=== PATIENT | female | born 1995 | race Caucasian/White ===

== ENCOUNTER 2017-04-22 21:04 | Inpatient (IN) | payer MEDICAID, OTHER ==
[2017-04-22] MEDS ORDERED: Misoprostol 25 MCG (1/4 of 100 MCG) Tab VAG PRN (21:51)
[2017-04-22] MEDS ORDERED: Terbutaline 1 MG/ML SDV SUBCUT PRN (21:51)
[2017-04-22] MEDS ORDERED: Sodium Chloride 0.9% 2.5 ML Syringe FLUSH PRN (21:52)
[2017-04-22] MEDS ORDERED: Carboprost Tromethamine 250 MCG/1 ML Amp IM PRN (21:52)
[2017-04-22] MEDS ORDERED: Lidocaine 1% 50 ML MDV INJECT PRN (21:52)
[2017-04-22] MEDS ORDERED: Methylergonovine 0.2 MG/1 ML Amp IM PRN (21:52)
[2017-04-22] MEDS ORDERED: Sodium Chloride 0.9% 10 ML Syringe FLUSH PRN (21:52)
[2017-04-22] MEDS ORDERED: Butorphanol 1 MG/ML SDV IVPUSH PRN (21:52)
[2017-04-22] MEDS ORDERED: Nalbuphine 10 MG/1 ML Vial IVPUSH PRN (21:52)
[2017-04-22] MEDS ORDERED: Water For Irrigation,Sterile 1,000 ML Container IRR PRN (21:52)
[2017-04-22] MEDS ORDERED: Misoprostol 200 MCG Tab PO PRN (21:52)
[2017-04-22] MEDS ORDERED: Ampicillin 2 GM in Sodium Chloride 0.9% 100 ML IV ONE (22:00)
[2017-04-22] MEDS ORDERED: Misoprostol 25 MCG (1/4 of 100 MCG) Tab VAG SCH (22:00)
[2017-04-22] MEDS ORDERED: Oxytocin/0.9 % Sodium Chloride 30 UNIT/500 ML BAG IV SCH ×2 (22:00)
[2017-04-22] MEDS: Lactated Ringers 1,000 ML IV SCH (22:08)
[2017-04-22] MEDS: Misoprostol 25 MCG (1/4 of 100 MCG) Tab PO SCH (22:31)
[2017-04-23] MEDS: Ampicillin 1 GM in Sodium Chloride 0.9% 50 ML IV SCH ×3 (02:18→10:25)
[2017-04-23] MEDS: Lactated Ringers 1,000 ML IV SCH ×3 (04:32→10:23)
--- NOTE | 2017-04-23 04:35 | PCM.LDHP ---
L&D History of Present Illness - General Date of Service: 04/23/17 Admit Problem/Dx: Patient Status Order with Admit Dx/Problem 04/22/17 21:52 Patient Status [ADT] Routine Admission Diagnosis/Problem Admission Diagnosis/Problem 04/23/17 04:32 21yo [facility] 05/18/2017 36 3/7wks come today due to SROM clear fluid, O-, RI , GBS unwknw. Source of Information: Patient History Limitations: Reports: No Limitations - History of Present Illness Introduction:: 21yo [facility] 05/18/2017 36 3/7wks come today due to SROM clear fluid, O-, RI , GBS unwknw. Improves with: Reports: None Worsens with: Reports: None Associated Symptoms: Reports: N - Related Data Allergies/Adverse Reactions: Allergies Allergy/AdvReac Type Severity Reaction Status Date / Time No Known Allergies Allergy Verified 04/04/15 21:38 Home Medications: Home Meds . 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 OBGYN: Reports: - Tobacco Use Smoking Status *Q: Never Smoker - Caffeine Use Caffeine Use: Reports: None - Recreational Drug Use Recreational Drug Use: No H&P Review of Systems - Review of Systems: Review Of Systems: See Below General: Reports: No Symptoms HEENT: Reports: No Symptoms Pulmonary: Reports: No Symptoms Cardiovascular: Reports: No Symptoms Gastrointestinal: Reports: No Symptoms Genitourinary: Reports: No Symptoms Musculoskeletal: Reports: No Symptoms Skin: Reports: No Symptoms Psychiatric: Reports: No Symptoms Neurological: Reports: No Symptoms Hematologic/Lymphatic: Reports: No Symptoms Immunologic: Reports: No Symptoms L&D Exam - Exam Exam: See Below - Vital Signs Weight: 79.095 kg - Exam General: Alert, Oriented, Cooperative HEENT: Hearing Intact Lungs: Normal Respiratory Effort GI/Abdominal Exam: Soft, Non-Tender Rectal Exam: Deferred Genitourinary: Cervical fluid Back Exam: Full Range of Motion Extremities: Normal Range of Motion, Non-Tender, No Pedal Edema, Normal Capillary Refill Skin: Warm, Dry, Intact Neurological: Reflexes Equal Bilateral, Normal Speech, Normal Tone Psychiatric: Alert, Normal Affect, Normal Mood - Patient Data Lab Results Last 24 hrs: Laboratory Results - last 24 hr 04/22/17 04/22/17 04/22/17 Range/Units 21:22 22:08 22:08 WBC 15.41 H (4.0-11.0) K/uL RBC 3.60 L (4.30-5.90) M/uL Hgb 9.8 L (12.0-16.0) g/dL Hct 29.9 L (36.0-46.0) % MCV 83.1 (80.0-98.0) fL MCH 27.2 (27.0-32.0) pg MCHC 32.8 (31.0-37.0) g/dL RDW Std Deviation 41.4 (28.0-62.0) fl RDW Coeff of Des 14 (11.0-15.0) % Plt Count 273 (150-400) K/uL MPV 10.10 (7.40-12.00) fL Nucleated RBC % 0.0 /100WBC Nucleated RBCs # 0 K/uL Membrane Rupture POSITIVE Blood Type O NEGATIVE Antibody Screen POSITIVE Antibody Identification Anti-D Result Diagrams: 04/22/17 22:08 - Problem List (1) Supervision of normal IUP (intrauterine ) in primigravida SNOMED Code(s): 40047358, 763946991, 841933161 ICD Code: Z34.00 - ENCNTR FOR SUPRVSN OF NORMAL FIRST , UNSP TRIMESTER Status: Acute Priority: High Current Visit: Yes Qualifiers: Trimester: third trimester Qualified Code(s): Z34.03 - Encounter for supervision of normal first , third trimester (2) SROM (spontaneous rupture of membranes) SNOMED Code(s): 268458058 ICD Code: INH6013 - Status: Acute Priority: High Current Visit: Yes Problem List Initiated/Reviewed/Updated: Yes Orders Last 24hrs: Active Orders 24 hr Category Date Time Status Patient Status [ADT] Routine ADT 04/22/17 21:52 Active Bedrest Bathroom Privileges [RC] ASDIRECTED Care 04/22/17 21:51 Active Communication Order [RC] ASDIRECTED Care 04/22/17 21:51 Active Communication Order [RC] ASDIRECTED Care 04/22/17 21:51 Active Communication Order [RC] ASDIRECTED Care 04/22/17 21:51 Active Heart Tones [RC] CONTINUOUS Care 04/22/17 21:52 Active Non Stress Test [RC] PER UNIT ROUTINE Care 04/22/17 21:52 Active May Shower [RC] ASDIRECTED Care 04/22/17 21:52 Active Notify Provider [RC] PRN Care 04/22/17 21:51 Active Notify Provider [RC] PRN Care 04/22/17 21:51 Active Notify Provider [RC] PRN Care 04/22/17 21:52 Active Notify Provider [RC] STAT Care 04/22/17 21:51 Active Oxygen Therapy [RC] ASDIRECTED Care 04/22/17 21:51 Active Up ad Bonnie [RC] ASDIRECTED Care 04/22/17 21:52 Active Vaginal Exam [RC] PRN Care 04/22/17 21:51 Active Vaginal Exam [RC] PRN Care 04/22/17 21:52 Active Vital Signs [RC] PER UNIT ROUTINE Care 04/22/17 21:51 Active Vital Signs [RC] PER UNIT ROUTINE Care 04/22/17 21:52 Active Clear Liquid Diet [DIET] Diet 04/23/17 Breakfast Active Ampicillin 1 gm Med 04/23/17 02:00 Active Sodium Chloride 0.9% [Normal Saline] 50 ml IV Q4H Butorphanol [Stadol] Med 04/22/17 21:52 Active 1 mg IVPUSH Q1H PRN Carboprost Tromethamine [Hemabate DS] Med 04/22/17 21:52 Active 250 mcg IM ASDIRECTED PRN Lactated Ringers [Ringers, Lactated] 1,000 ml Med 04/22/17 22:00 Active IV ASDIRECTED Lidocaine 1% [Xylocaine 1%] Med 04/22/17 21:52 Active 50 ml INJECT .ONCE PRN Methylergonovine [Methergine] Med 04/22/17 21:52 Active 0.2 mg IM ASDIRECTED PRN Misoprostol [Cytotec] Med 04/22/17 21:52 Active 200 mcg PO .ONCE PRN Misoprostol [Cytotec] Med 04/22/17 22:00 Active 25 mcg PO Q4H Misoprostol [Cytotec] Med 04/22/17 22:00 Active 25 mcg VAG .ONCE Misoprostol [Cytotec] Med 04/22/17 21:51 Active 25 mcg VAG Q4H PRN Nalbuphine [Nubain] Med 04/22/17 21:52 Active 10 mg IVPUSH Q1H PRN Oxytocin/0.9 % Sodium Chloride [Oxytocin 30 Unit/500 ML Med 04/22/17 22:00 Active -NS] 30 unit in 500 ml IV TITRATE Oxytocin/0.9 % Sodium Chloride [Oxytocin 30 Unit/500 ML Med 04/22/17 22:00 Active -NS] 30 unit in 500 ml IV TITRATE Sodium Chloride 0.9% [Saline Flush] Med 04/22/17 21:52 Active 10 ml FLUSH ASDIRECTED PRN Sodium Chloride 0.9% [Saline Flush] Med 04/22/17 21:52 Active 2.5 ml FLUSH ASDIRECTED PRN Terbutaline [Brethine] Med 04/22/17 21:51 Active 0.25 mg SUBCUT ASDIRECTED PRN Water For Irrigation,Sterile [Sterile Water for Med 04/22/17 21:52 Active Irrigation] 1,000 ml IRR ASDIRECTED PRN Scalp Electrode [WOMSER] Per Unit Routine Oth 04/22/17 21:52 Ordered Medication Administration Instruction [OM.PC] Q3H Oth 04/22/17 22:00 Ordered Peripheral IV Insertion Adult [OM.PC] Routine Oth 04/22/17 21:52 Ordered Resuscitation Status Routine Resus Stat 04/22/17 21:52 Ordered Medication Orders Butorphanol Tartrate (Stadol) 1 mg IVPUSH Q1H PRN PRN Reason: Pain Carboprost Tromethamine (Hemabate Ds) 250 mcg IM ASDIRECTED PRN PRN Reason: Post Hemorrhage Oxytocin/Sodium Chloride (Oxytocin 30 Unit/500 Ml-Ns) 30 unit in 500 mls @ 2 mls/hr IV TITRATE CORNELIA; 2 MUNITS/MIN PRN Reason: Protocol Lactated Ringer's (Ringers, Lactated) 1,000 mls @ 150 mls/hr IV ASDIRECTED [facility] Last Admin: 04/22/17 22:08 Dose: 150 mls/hr Oxytocin/Sodium Chloride (Oxytocin 30 Unit/500 Ml-Ns) 30 unit in 500 mls @ 999 mls/hr IV TITRATE [facility] Ampicillin Sodium 1 gm/ Sodium (Chloride) 50 mls @ 100 mls/hr IV Q4H [facility] Last Admin: 04/23/17 02:18 Dose: 100 mls/hr Lidocaine HCl (Xylocaine 1%) 50 ml INJECT .ONCE PRN PRN Reason: Laceration repair Methylergonovine Maleate (Methergine) 0.2 mg IM ASDIRECTED PRN PRN Reason: Post Hemorrhage Misoprostol (Cytotec) 25 mcg VAG .ONCE [facility] Last Admin: 04/22/17 22:33 Dose: 25 mcg Misoprostol (Cytotec) 25 mcg VAG Q4H PRN PRN Reason: Cervical Ripening Misoprostol (Cytotec) 200 mcg PO .ONCE PRN PRN Reason: Post Hemorrhage Misoprostol (Cytotec) 25 mcg PO Q4H [facility] Last Admin: 04/22/17 22:31 Dose: 25 mcg Nalbuphine HCl (Nubain) 10 mg IVPUSH Q1H PRN PRN Reason: Pain (severe 7-10) Sodium Chloride (Saline Flush) 10 ml FLUSH ASDIRECTED PRN PRN Reason: Keep Vein Open Sodium Chloride (Saline Flush) 2.5 ml FLUSH ASDIRECTED PRN PRN Reason: Keep Vein Open Sterile Water (Sterile Water For Irrigation) 1,000 ml IRR ASDIRECTED PRN PRN Reason: delivery Terbutaline Sulfate (Brethine) 0.25 mg SUBCUT ASDIRECTED PRN PRN Reason: Tacysystole Assessment/Plan Comment:: Labor A: 21yo [facility] 05/18/2017 36 3/7wks come today due to SROM clear fluid, O-, RI, GBS unwknw. P: admit to L&D, ampicillin for GBS unkwn, epidural prn, anticipate .
[2017-04-23] MEDS ORDERED: ePHEDrine 50 MG/ML SDV ONE (05:02)
[2017-04-23] MEDS ORDERED: Ropivacaine 0.2% 2 MG/ML 20 ML SDV ONE (05:03)
[2017-04-23] MEDS ORDERED: fentaNYL 100 MCG/2 ML SDV ONE (05:03)
[2017-04-23] MEDS ORDERED: Ropivacaine HCl/PF 100 ML ONE (05:03)
--- NOTE | 2017-04-23 05:36 | PCM.PREANE ---
Preanesthetic Assessment - Procedure Proposed Procedure: labor epidural - Anesthesia/Transfusion/Family Hx Anesthesia History: No Prior Anesthesia Family History of Anesthesia Reaction: No Transfusion History: No Prior Transfusion(s) - Review of Systems General: No Symptoms Pulmonary: No Symptoms Cardiovascular: No Symptoms Gastrointestinal: No Symptoms Neurological: No Symptoms (slight lower scoliosis per pt) Other: Reports: None - Physical Assessment Height: 1.73 m Weight: 79.095 kg ASA Class: 2 Mental Status: Alert & Oriented x3 Dentition: Reports: Normal Dentition Thyro-Mental Finger Breadths: 3 Mouth Opening Finger Breadths: 3 Lungs: Clear to Auscultation, Normal Respiratory Effort Cardiovascular: Regular Rate, Regular Rhythm - Lab Values: Laboratory Last Values WBC 15.41 K/uL (4.0-11.0) H 04/22/17 22:08 RBC 3.60 M/uL (4.30-5.90) L 04/22/17 22:08 Hgb 9.8 g/dL (12.0-16.0) L 04/22/17 22:08 Hct 29.9 % (36.0-46.0) L 04/22/17 22:08 MCV 83.1 fL (80.0-98.0) 04/22/17 22:08 MCH 27.2 pg (27.0-32.0) 04/22/17 22:08 MCHC 32.8 g/dL (31.0-37.0) 04/22/17 22:08 RDW Std Deviation 41.4 fl (28.0-62.0) 04/22/17 22:08 RDW Coeff of Des 14 % (11.0-15.0) 04/22/17 22:08 Plt Count 273 K/uL (150-400) 04/22/17 22:08 MPV 10.10 fL (7.40-12.00) 04/22/17 22:08 Nucleated RBC % 0.0 /100WBC 04/22/17 22:08 Nucleated RBCs # 0 K/uL 04/22/17 22:08 Membrane Rupture POSITIVE 04/22/17 21:22 Blood Type O NEGATIVE 04/22/17 22:08 Antibody Screen POSITIVE 04/22/17 22:08 Antibody Identification Anti-D 04/22/17 22:08 - Allergies Allergies/Adverse Reactions: Allergies Allergy/AdvReac Type Severity Reaction Status Date / Time No Known Allergies Allergy Verified 04/04/15 21:38 - Blood Blood Available: Yes Product(s) Available: PRBC - Acknowledgements Anesthesia Type Planned: Epidural Pt an Appropriate Candidate for the Planned Anesthesia: Yes Alternatives and Risks of Anesthesia Discussed w Pt/Guardian: Yes Pt/Guardian Understands and Agrees with Anesthesia Plan: Yes PreAnesthesia Questionnaire Gastrointestinal History: Reports: 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 [No Known Home Meds] 04/04/15 [History] - CURRENT (IN HOUSE) MEDS Current Meds: Current Medications Butorphanol Tartrate (Stadol) 1 mg IVPUSH Q1H PRN PRN Reason: Pain Carboprost Tromethamine (Hemabate Ds) 250 mcg IM ASDIRECTED PRN PRN Reason: Post Hemorrhage Oxytocin/Sodium Chloride (Oxytocin 30 Unit/500 Ml-Ns) 30 unit in 500 mls @ 2 mls/hr IV TITRATE [facility]; 2 MUNITS/MIN PRN Reason: Protocol Lactated Ringer's (Ringers, Lactated) 1,000 mls @ 150 mls/hr IV ASDIRECTED [facility] Last Admin: 04/23/17 05:33 Dose: 999 mls/hr Oxytocin/Sodium Chloride (Oxytocin 30 Unit/500 Ml-Ns) 30 unit in 500 mls @ 999 mls/hr IV TITRATE [facility] Ampicillin Sodium 1 gm/ Sodium (Chloride) 50 mls @ 100 mls/hr IV Q4H [facility] Last Admin: 04/23/17 02:18 Dose: 100 mls/hr Lidocaine HCl (Xylocaine 1%) 50 ml INJECT .ONCE PRN PRN Reason: Laceration repair Methylergonovine Maleate (Methergine) 0.2 mg IM ASDIRECTED PRN PRN Reason: Post Hemorrhage Misoprostol (Cytotec) 25 mcg VAG .ONCE [facility] Last Admin: 04/22/17 22:33 Dose: 25 mcg Misoprostol (Cytotec) 25 mcg VAG Q4H PRN PRN Reason: Cervical Ripening Misoprostol (Cytotec) 200 mcg PO .ONCE PRN PRN Reason: Post Hemorrhage Misoprostol (Cytotec) 25 mcg PO Q4H [facility] Last Admin: 04/22/17 22:31 Dose: 25 mcg Nalbuphine HCl (Nubain) 10 mg IVPUSH Q1H PRN PRN Reason: Pain (severe 7-10) Sodium Chloride (Saline Flush) 10 ml FLUSH ASDIRECTED PRN PRN Reason: Keep Vein Open Sodium Chloride (Saline Flush) 2.5 ml FLUSH ASDIRECTED PRN PRN Reason: Keep Vein Open Sterile Water (Sterile Water For Irrigation) 1,000 ml IRR ASDIRECTED PRN PRN Reason: delivery Terbutaline Sulfate (Brethine) 0.25 mg SUBCUT ASDIRECTED PRN PRN Reason: Tacysystole Discontinued Medications Ephedrine Sulfate (Ephedrine Sulfate) Confirm Administered Dose 50 mg .ROUTE .STK-MED ONE Stop: 04/23/17 05:03 Fentanyl (Sublimaze) Confirm Administered Dose 300 mcg .ROUTE .STK-MED ONE Stop: 04/23/17 05:04 Ampicillin Sodium 2 gm/ Sodium (Chloride) 100 mls @ 200 mls/hr IV ONETIME ONE Stop: 04/22/17 22:29 Last Admin: 04/22/17 22:29 Dose: 200 mls/hr Ropivacaine (Naropin 0.2%) Confirm Administered Dose 100 mls @ as directed .ROUTE .STK-MED ONE Stop: 04/23/17 05:04 Ropivacaine (Naropin 0.2%) Confirm Administered Dose 20 ml .ROUTE .STK-MED ONE Stop: 04/23/17 05:04
--- NOTE | 2017-04-23 05:40 | PCM.PRNOTE ---
- Free Text/Narrative Note: Asked to see patient for epidural request for labor pain. Pt id,chart review and consent obtained. discussed epidural procedure and risks including nerve pain, nerve damage, bleeding, infection and/or unsuccessful placement. patient agrees. sitting up, sterile betadine prep x 3, sterile drape. 1% lidocaine SQ at L4. #25 touhy needle LYNETTE saline os x 2, needle redirected slightly to left to approximately 5 cm. No heme, no paresthesia. catheter easily placed to 10cm at skin. test dose 3 ml 1.5% lidocaine with epinephrine 1:200,000. negative reaction. Pt. bolused with 100 mcg fentanyl and 4 ml 0.2% ropivicaine. Pt felt relief after two contractions. level with cold/wet sensation found to be t10. on right and minimal level on left, pain now 1/10. PCEA pump of 0.2% ropivicaine with fentanyl 2 mcg/ml running at 8 ml/hr with bolus of 5ml/20 min with lockout volume limit of 23 ml. pt educated on use of PCEA pump. No complications noted
[2017-04-23] MEDS ORDERED: Benzocaine/Menthol 20%-0.5% Spray 78 GM Cannister TOP PRN (12:19)
[2017-04-23] MEDS ORDERED: Lanolin 100% Cream 7 GM Tube TOP PRN (12:19)
[2017-04-23] MEDS ORDERED: Ibuprofen 400 MG Tab PO PRN (12:19)
[2017-04-23] MEDS ORDERED: Witch Hazel Medicated Pads 40/Jar TOP PRN (12:19)
[2017-04-23] MEDS ORDERED: Docusate Sodium 100 MG Cap PO PRN (12:19)
[2017-04-23] MEDS ORDERED: Bisacodyl 10 MG Supp RECTAL PRN (12:19)
[2017-04-23] MEDS ORDERED: oxyCODONE 5 MG Tab PO PRN (12:19)
[2017-04-23] MEDS ORDERED: Acetaminophen 500 MG Tab PO PRN ×2 (12:19)
--- NOTE | 2017-04-23 12:35 | PCM.DEL ---
L & D Note - General Info Date of Service: 04/23/17 Mother's Due Date: 05/18/17 - Delivery Note Labor: Spontaneous Delivery Outcome: Livebirth Infant Delivery Method: Spontaneous Vaginal Delivery-Single Infant Delivery Mode: Spontaneous Presentation: Vertex Nuchal Cord: None Anesthesia Type: Epidural Amniotic Fluid Description: Clear Episiotomy Type: None Laceration: None Suture type: Other Suture size: 4-0 Placenta: Intact, Spontaneous Cord: 3 Vessels Estimated Blood Loss: 200 Resuscitation Needed: No : Stimulated Score 1 min: 8 Score 5 min: 9 Second Stage Interventions: Reports: Pushing, Pulls Own Legs Back Delivery Comments (Free Text/Narrative):: of viable male over intact perineum. Head delivered with good pushing, shoulders and body followed easily. to mothers abdomen with Dr Gomez at for evaluation. Spont cry. Delayed cord clamping. Pitocin to IVF. Cord clamped and cut by FOB. Cord blood collected. Placenta delivered grossly intact. Inspection noted bilat labial sidewall lacerations. Repaired right laceration with 4-0 poly to homeostases. The left side did not need repair. FF, EBL 200cc. APGARS 8/9, Wt: 7lb 1oz. Mother and baby left in stable condition for recovery. - General Info Date of Service: 04/23/17 Admission Dx/Problem (Free Text): Patient Status Order with Admit Dx/Problem 04/22/17 21:52 Patient Status [ADT] Routine Admission Diagnosis/Problem Admission Diagnosis/Problem 04/23/17 04:32 21yo [facility] 05/18/2017 36 3/7wks come today due to SROM clear fluid, O-, RI , GBS unwknw. Functional Status: Reports: Pain Controlled - Review of Systems General: Reports: No Symptoms HEENT: Reports: No Symptoms Pulmonary: Reports: No Symptoms Cardiovascular: Reports: No Symptoms Gastrointestinal: Reports: No Symptoms Genitourinary: Reports: No Symptoms Musculoskeletal: Reports: No Symptoms Skin: Reports: No Symptoms Neurological: Reports: No Symptoms Psychiatric: Reports: No Symptoms - Patient Data Weight - Most Recent: 79.095 kg Lab Results Last 24 Hours: Laboratory Results - last 24 hr 04/22/17 04/22/17 04/22/17 Range/Units 21:22 22:08 22:08 WBC 15.41 H (4.0-11.0) K/uL RBC 3.60 L (4.30-5.90) M/uL Hgb 9.8 L (12.0-16.0) g/dL Hct 29.9 L (36.0-46.0) % MCV 83.1 (80.0-98.0) fL MCH 27.2 (27.0-32.0) pg MCHC 32.8 (31.0-37.0) g/dL RDW Std Deviation 41.4 (28.0-62.0) fl RDW Coeff of Des 14 (11.0-15.0) % Plt Count 273 (150-400) K/uL MPV 10.10 (7.40-12.00) fL Nucleated RBC % 0.0 /100WBC Nucleated RBCs # 0 K/uL Membrane Rupture POSITIVE Blood Type O NEGATIVE Antibody Screen POSITIVE Antibody Identification Anti-D Med Orders - Current: Current Medications Acetaminophen (Tylenol Extra Strength) 500 mg PO Q4H PRN PRN Reason: Pain Acetaminophen (Tylenol Extra Strength) 1,000 mg PO Q4H PRN PRN Reason: Pain Benzocaine/Menthol (Dermoplast Pain Relief 20%-0.5% Ola) 78 gm TOP ASDIRECTED PRN PRN Reason: Perineal Comfort Measure Bisacodyl (Dulcolax) 10 mg RECTAL .ONCE PRN PRN Reason: Constipation Docusate Sodium (Colace) 100 mg PO BID PRN PRN Reason: Constipation Emollient Ointment (Lansinoh Hpa) 0 gm TOP ASDIRECTED PRN PRN Reason: Sore Nipples Ibuprofen (Motrin) 400 mg PO Q4H PRN PRN Reason: Pain Ibuprofen (Motrin) 800 mg PO Q6H PRN PRN Reason: Pain Oxycodone HCl (Oxycodone) 5 mg PO Q2H PRN PRN Reason: Pain Witch Sameera (Tucks) 1 pad TOP ASDIRECTED PRN PRN Reason: comfort care Discontinued Medications Butorphanol Tartrate (Stadol) 1 mg IVPUSH Q1H PRN PRN Reason: Pain Carboprost Tromethamine (Hemabate Ds) 250 mcg IM ASDIRECTED PRN PRN Reason: Post Hemorrhage Ephedrine Sulfate (Ephedrine Sulfate) Confirm Administered Dose 50 mg .ROUTE .STK-MED ONE Stop: 04/23/17 05:03 Fentanyl (Sublimaze) Confirm Administered Dose 300 mcg .ROUTE .ST-MED ONE Stop: 04/23/17 05:04 Oxytocin/Sodium Chloride (Oxytocin 30 Unit/500 Ml-Ns) 30 unit in 500 mls @ 2 mls/hr IV TITRATE CORNELIA; 2 MUNITS/MIN PRN Reason: Protocol Ampicillin Sodium 2 gm/ Sodium (Chloride) 100 mls @ 200 mls/hr IV ONETIME ONE Stop: 04/22/17 22:29 Last Admin: 04/22/17 22:29 Dose: 200 mls/hr Lactated Ringer's (Ringers, Lactated) 1,000 mls @ 150 mls/hr IV ASDIRECTED [facility] Last Admin: 04/23/17 10:23 Dose: 999 mls/hr Oxytocin/Sodium Chloride (Oxytocin 30 Unit/500 Ml-Ns) 30 unit in 500 mls @ 999 mls/hr IV TITRATE [place] Ampicillin Sodium 1 gm/ Sodium (Chloride) 50 mls @ 100 mls/hr IV Q4H [facility] Last Admin: 04/23/17 10:25 Dose: 100 mls/hr Ropivacaine (Naropin 0.2%) Confirm Administered Dose 100 mls @ as directed .ROUTE .[facility] ONE Stop: 04/23/17 05:04 Lidocaine HCl (Xylocaine 1%) 50 ml INJECT .ONCE PRN PRN Reason: Laceration repair Methylergonovine Maleate (Methergine) 0.2 mg IM ASDIRECTED PRN PRN Reason: Post Hemorrhage Misoprostol (Cytotec) 25 mcg VAG .ONCE [facility] Last Admin: 04/22/17 22:33 Dose: 25 mcg Misoprostol (Cytotec) 25 mcg VAG Q4H PRN PRN Reason: Cervical Ripening Misoprostol (Cytotec) 200 mcg PO .ONCE PRN PRN Reason: Post Hemorrhage Misoprostol (Cytotec) 25 mcg PO Q4H [facility] Last Admin: 04/22/17 22:31 Dose: 25 mcg Nalbuphine HCl (Nubain) 10 mg IVPUSH Q1H PRN PRN Reason: Pain (severe 7-10) Ropivacaine (Naropin 0.2%) Confirm Administered Dose 20 ml .ROUTE .ElationEMR-MED ONE Stop: 04/23/17 05:04 Sodium Chloride (Saline Flush) 10 ml FLUSH ASDIRECTED PRN PRN Reason: Keep Vein Open Sodium Chloride (Saline Flush) 2.5 ml FLUSH ASDIRECTED PRN PRN Reason: Keep Vein Open Sterile Water (Sterile Water For Irrigation) 1,000 ml IRR ASDIRECTED PRN PRN Reason: delivery Terbutaline Sulfate (Brethine) 0.25 mg SUBCUT ASDIRECTED PRN PRN Reason: Tacysystole - Exam General: Alert, Oriented, Cooperative, No Acute Distress Lungs: Normal Respiratory Effort GI/Abdominal Exam: Soft, Non-Tender (Female) Exam: Normal External Exam, Normal Bimanual Exam, Vaginal Bleeding, Other (labial tears) Back Exam: Full Range of Motion Extremities: Normal Range of Motion, Non-Tender, No Pedal Edema, Normal Capillary Refill Skin: Warm, Dry, Intact Wound/Incisions: Healing Well Neurological: No New Focal Deficit, Normal Speech, Normal Tone Psy/Mental Status: Alert, Normal Affect, Normal Mood - Problem List & Annotations (1) Supervision of normal IUP (intrauterine ) in primigravida SNOMED Code(s): 29584636, 323714327, 404230768 Code(s): Z34.00 - ENCNTR FOR SUPRVSN OF NORMAL FIRST , UNSP TRIMESTER Status: Acute Priority: High Current Visit: Yes Qualifiers: Trimester: third trimester Qualified Code(s): Z34.03 - Encounter for supervision of normal first , third trimester (2) SROM (spontaneous rupture of membranes) SNOMED Code(s): 908001391 Code(s): NLX8154 - Status: Acute Priority: High Current Visit: Yes (3) (normal spontaneous vaginal delivery) SNOMED Code(s): 02243240 Code(s): O80 - ENCOUNTER FOR FULL-TERM UNCOMPLICATED DELIVERY Status: Acute Priority: High Current Visit: Yes - Problem List Review Problem List Initiated/Reviewed/Updated: Yes - My Orders Last 24 Hours: My Active Orders 04/22/17 21:52 May Shower [RC] ASDIRECTED Notify Provider [RC] PRN Up ad Bonnie [RC] ASDIRECTED Vital Signs [RC] PER UNIT ROUTINE 04/23/17 12:19 May Shower [RC] ASDIRECTED Up ad Bonnie [RC] ASDIRECTED Vital Signs [RC] PER UNIT ROUTINE Acetaminophen [Tylenol Extra Strength] 1,000 mg PO Q4H PRN Acetaminophen [Tylenol Extra Strength] 500 mg PO Q4H PRN Benzocaine/Menthol [Dermoplast Pain Relief 20%-0.5% Ola] 78 gm TOP ASDIRECTED PRN Bisacodyl [Dulcolax] 10 mg RECTAL .ONCE PRN Docusate Sodium [Colace] 100 mg PO BID PRN Ibuprofen [Motrin] 400 mg PO Q4H PRN Ibuprofen [Motrin] 800 mg PO Q6H PRN Lanolin [Lansinoh HPA] See Dose Instructions TOP ASDIRECTED PRN Witch Sameera [Tucks] 1 pad TOP ASDIRECTED PRN oxyCODONE 5 mg PO Q2H PRN Assess Lochia [WOMSER] Per Unit Routine Assess Uterine Involution [WOMSER] Per Unit Routine Peripheral IV Discontinue [OM.PC] Routine Resuscitation Status Routine 04/23/17 12:20 Patient Status [ADT] Routine 04/23/17 Lunch Regular Diet [DIET] - Assessment Assessment:: Delivery A: of viable male, APGARS 8/9, Wt: 7lb 1oz, Rt sidewall laceration with repair. EBL 200cc, mother and baby left in stable condition bonding well. - Plan Plan:: Labor A: 21yo EDC 05/18/2017 36 3/7wks come today due to SROM clear fluid, O-, RI, GBS unwknw. P: admit to L&D, ampicillin for GBS unkwn, epidural prn, anticipate . Delivery P: routine pp plan of care
[2017-04-23] MEDS: Ibuprofen 800 MG Tab PO PRN (17:23)
[2017-04-23] MEDS: Misoprostol 25 MCG (1/4 of 100 MCG) Tab PO SCH (20:30)
[2017-04-24] MEDS: Ibuprofen 800 MG Tab PO PRN (00:28)
--- NOTE | 2017-04-24 08:27 | PCM.DCSUM1 ---
Discharge Summary - Hospital Course Free Text/Narrative:: Discharge home with infant. Follow up 6 weeks for post visit or sooner if needed. - Discharge Data Discharge Date: 04/24/17 Discharge Disposition: Home, Self-Care 01 Condition: Good - Discharge Diagnosis/Problem(s) (1) Supervision of normal IUP (intrauterine ) in primigravida SNOMED Code(s): 49578451, 207976456, 926230000 ICD Code: Z34.00 - ENCNTR FOR SUPRVSN OF NORMAL FIRST , UNSP TRIMESTER Status: Acute Priority: High Current Visit: Yes Qualifiers: Trimester: third trimester Qualified Code(s): Z34.03 - Encounter for supervision of normal first , third trimester (2) SROM (spontaneous rupture of membranes) SNOMED Code(s): 038807634 ICD Code: LSL0633 - Status: Acute Priority: High Current Visit: Yes (3) (normal spontaneous vaginal delivery) SNOMED Code(s): 26390986 ICD Code: O80 - ENCOUNTER FOR FULL-TERM UNCOMPLICATED DELIVERY Status: Acute Priority: High Current Visit: Yes - Patient Instructions Diet: Usual Diet as Tolerated Activity: As Tolerated Driving: May Drive Today Showering/Bathing: May Shower Notify Provider of: Fever, Increased Pain, Swelling and Redness, Nausea and/or Vomiting Other/Special Instructions: Discharge home with infant. Follow up 6 weeks for post visit or sooner if needed. - Discharge Plan Home Medications: Home Meds . [No Known Home Meds] 04/04/15 [History] Referrals: [facility] [Outside] Fauzia Tao CNM [Primary Care Provider] - 06/04/17 10:45 am - General Info Date of Service: 04/24/17 Admission Dx/Problem (Free Text: Patient Status Order with Admit Dx/Problem 04/22/17 21:52 Patient Status [ADT] Routine Admission Diagnosis/Problem Admission Diagnosis/Problem 04/23/17 04:32 21yo EDC 05/18/2017 36 3/7wks come today due to SROM clear fluid, O-, RI , GBS unwknw. Functional Status: Reports: Pain Controlled, Tolerating Diet, Ambulating, Urinating - Review of Systems General: Reports: No Symptoms HEENT: Reports: No Symptoms Pulmonary: Reports: No Symptoms Cardiovascular: Reports: No Symptoms Gastrointestinal: Reports: No Symptoms Genitourinary: Reports: No Symptoms Musculoskeletal: Reports: No Symptoms Skin: Reports: No Symptoms Neurological: Reports: No Symptoms Psychiatric: Reports: No Symptoms - Patient Data Vitals - Most Recent: Last Vital Signs Temp 36.4 C 04/24/17 04:00 Pulse 84 04/24/17 04:00 Resp 18 04/24/17 04:00 BP 101/51 L 04/24/17 04:00 Pulse Ox 96 04/24/17 04:00 Weight - Most Recent: 79.095 kg I&O - Last 24 hours: Intake & Output 04/23/17 04/24/17 04/24/17 22:59 06:59 14:59 Intake Total 2 Balance 2 Lab Results - Last 24 hrs: Laboratory Results - last 24 hr 04/23/17 Range/Units 13:03 Screen NEGATIVE (NEGATIVE) RhIG Candidate? YES Rhogam Indicated YES, BABY RH POS H Med Orders - Current: Current Medications Acetaminophen (Tylenol Extra Strength) 500 mg PO Q4H PRN PRN Reason: Pain Acetaminophen (Tylenol Extra Strength) 1,000 mg PO Q4H PRN PRN Reason: Pain Benzocaine/Menthol (Dermoplast Pain Relief 20%-0.5% [place]) 78 gm TOP ASDIRECTED PRN PRN Reason: Perineal Comfort Measure Last Admin: 04/23/17 17:25 Dose: 1 can Bisacodyl (Dulcolax) 10 mg RECTAL .ONCE PRN PRN Reason: Constipation Docusate Sodium (Colace) 100 mg PO BID PRN PRN Reason: Constipation Emollient Ointment (Lansinoh Hpa) 0 gm TOP ASDIRECTED PRN PRN Reason: Sore Nipples Ibuprofen (Motrin) 400 mg PO Q4H PRN PRN Reason: Pain Ibuprofen (Motrin) 800 mg PO Q6H PRN PRN Reason: Pain Last Admin: 04/24/17 00:28 Dose: 800 mg Oxycodone HCl (Oxycodone) 5 mg PO Q2H PRN PRN Reason: Pain Witch Sameera (Tucks) 1 pad TOP ASDIRECTED PRN PRN Reason: comfort care Last Admin: 04/23/17 17:25 Dose: 1 tub Discontinued Medications Butorphanol Tartrate (Stadol) 1 mg IVPUSH Q1H PRN PRN Reason: Pain Carboprost Tromethamine (Hemabate Ds) 250 mcg IM ASDIRECTED PRN PRN Reason: Post Hemorrhage Ephedrine Sulfate (Ephedrine Sulfate) Confirm Administered Dose 50 mg .ROUTE .STK-MED ONE Stop: 04/23/17 05:03 Last Admin: 04/23/17 20:30 Dose: Not Given Fentanyl (Sublimaze) Confirm Administered Dose 300 mcg .ROUTE .STK-MED ONE Stop: 04/23/17 05:04 Last Admin: 04/23/17 20:31 Dose: Not Given Oxytocin/Sodium Chloride (Oxytocin 30 Unit/500 Ml-Ns) 30 unit in 500 mls @ 2 mls/hr IV TITRATE CORNELIA; 2 MUNITS/MIN PRN Reason: Protocol Ampicillin Sodium 2 gm/ Sodium (Chloride) 100 mls @ 200 mls/hr IV ONETIME ONE Stop: 04/22/17 22:29 Last Admin: 04/22/17 22:29 Dose: 200 mls/hr Lactated Ringer's (Ringers, Lactated) 1,000 mls @ 150 mls/hr IV ASDIRECTED CORNELIA Last Admin: 04/23/17 10:23 Dose: 999 mls/hr Oxytocin/Sodium Chloride (Oxytocin 30 Unit/500 Ml-Ns) 30 unit in 500 mls @ 999 mls/hr IV TITRATE CORNELIA Ampicillin Sodium 1 gm/ Sodium (Chloride) 50 mls @ 100 mls/hr IV Q4H [facility] Last Admin: 04/23/17 10:25 Dose: 100 mls/hr Ropivacaine (Naropin 0.2%) Confirm Administered Dose 100 mls @ as directed .ROUTE .STK-MED ONE Stop: 04/23/17 05:04 Last Admin: 04/23/17 20:31 Dose: Not Given Lidocaine HCl (Xylocaine 1%) 50 ml INJECT .ONCE PRN PRN Reason: Laceration repair Methylergonovine Maleate (Methergine) 0.2 mg IM ASDIRECTED PRN PRN Reason: Post Hemorrhage Misoprostol (Cytotec) 25 mcg VAG .ONCE CORNELIA Last Admin: 04/22/17 22:33 Dose: 25 mcg Misoprostol (Cytotec) 25 mcg VAG Q4H PRN PRN Reason: Cervical Ripening Misoprostol (Cytotec) 200 mcg PO .ONCE PRN PRN Reason: Post Hemorrhage Misoprostol (Cytotec) 25 mcg PO Q4H [facility] Last Admin: 04/23/17 20:30 Dose: Not Given Nalbuphine HCl (Nubain) 10 mg IVPUSH Q1H PRN PRN Reason: Pain (severe 7-10) Ropivacaine (Naropin 0.2%) Confirm Administered Dose 20 ml .ROUTE .RUST-MED ONE Stop: 04/23/17 05:04 Last Admin: 04/23/17 20:31 Dose: Not Given Sodium Chloride (Saline Flush) 10 ml FLUSH ASDIRECTED PRN PRN Reason: Keep Vein Open Sodium Chloride (Saline Flush) 2.5 ml FLUSH ASDIRECTED PRN PRN Reason: Keep Vein Open Sterile Water (Sterile Water For Irrigation) 1,000 ml IRR ASDIRECTED PRN PRN Reason: delivery Terbutaline Sulfate (Brethine) 0.25 mg SUBCUT ASDIRECTED PRN PRN Reason: Tacysystole - Exam General: Reports: Alert, Oriented Lungs: Reports: Normal Respiratory Effort GI/Abdominal Exam: Soft, Non-Tender (Female) Exam: Vaginal Discharge Rectal (Female) Exam: Deferred Back Exam: Reports: Full Range of Motion Extremities: Normal Range of Motion, Non-Tender, No Pedal Edema, Normal Capillary Refill Skin: Reports: Warm, Dry, Intact Wound/Incisions: Reports: Healing Well Neurological: Reports: No New Focal Deficit, Normal Gait, Normal Speech, Normal Tone Psy/Mental Status: Reports: Alert, Normal Affect, Normal Mood *Q Meaningful Use (DIS) - VTE *Q VTE Criteria *Q: - Stroke *Q Stroke Criteria *Q: - AMI *Q AMI Criteria *Q:
[2017-04-24 09:29] VITALS: BP 105/51
== END 2017-04-24 17:30 | disposition home or self-care (01) | DRG 775 ==
LOC: MW.OBCHECK 21:04 → MW.OB 21:06 → UNDOADMOB 21:52 → INTOOBSV 21:52 → OBSVTOIN 21:52 → MW.OBCHECK 22:31 → MW.OB 04-23 00:30 → OBSVTOIN 04-23 11:54 → MW.OB 04-23 16:25 → UNDODISIN 04-24 17:30
PROVIDERS: ADMIT Obstetrics & Gynecology; ATTEND Obstetrics & Gynecology
PROC: 10E0XZZ Delivery of Products of Conception, External Approach (ICD-10-PCS; principal; 2017-04-22)
PROC: 0HQ9XZZ Repair Perineum Skin, External Approach (ICD-10-PCS; 2017-04-22)
PROC: 00HU33Z Insertion of Infusion Device into Spinal Canal, Percutaneous Approach (ICD-10-PCS; 2017-04-22)
DX: O42.013 Preterm premature rupture of membranes, onset of labor within 24 hours of rupture, third trimester (principal); O70.0 First degree perineal laceration during delivery; Z3A.36 36 weeks gestation of pregnancy; Z37.0 Single live birth
CPT/HCPCS: 01967; 36415; 59025; 59409; 84112; 85027; 85460; 86850; 86870; 86900; 86901; A9270-GY; J0290; J2790; J7030; J7050; J7120

== ENCOUNTER 2018-02-06 03:09 | Emergency (ER) | payer BC ==
[2018-02-06] MEDS ORDERED: Haloperidol Lactate 5 MG/ML SDV IM ONE (03:10)
[2018-02-06] MEDS ORDERED: Haloperidol Lactate 5 MG/ML SDV ONE (03:13)
[2018-02-06] MEDS ORDERED: LORazepam 2 MG/ML SDV ONE (03:14)
--- NOTE | 2018-02-06 03:14 | EDM.PDOC ---
ED HPI GENERAL MEDICAL PROBLEM - General Stated Complaint: DRUGS Time Seen by Provider: 02/06/18 03:11 - History of Present Illness INITIAL COMMENTS - FREE TEXT/NARRATIVE: HISTORY AND PHYSICAL: History of present illness: Patient is a 22-year-old female who presents status post methamphetamine use 4 hours prior to arrival is now agitated and uncooperative altered brought in by friends. Patient unable to be meaningful history she is awake uncooperative with stable vital signs. Review of systems: As per history of present illness and below otherwise all systems reviewed and negative. Past medical history: As per history of present illness and as reviewed below otherwise noncontributory. Surgical history: As per history of present illness and as reviewed below otherwise noncontributory. Social history: No reported history of drug or alcohol abuse. Family history: As per history of present illness and as reviewed below otherwise noncontributory. Physical exam: HEENT: Atraumatic, normocephalic, pupils reactive, negative for conjunctival pallor or scleral icterus, mucous membranes moist, throat clear, neck supple, nontender, trachea midline. Lungs: Clear to auscultation, breath sounds equal bilaterally, chest nontender. Heart: S1S2, regular, negative for clicks, rubs, or JVD. Abdomen: Soft, nondistended, nontender. Negative for masses or hepatosplenomegaly. Negative for costovertebral tenderness. Pelvis: Stable nontender. Genitourinary: Deferred. Rectal: Deferred. Extremities: Atraumatic, negative for cords or calf pain. Neurovascular unremarkable. Neuro: Awake, alert, moves all extremities limited grossly nonfocal exam Diagnostics: CBC CMP hCG urine tox screen EtOH chest x-ray EKG Therapeutics: Haldol 10 mg IV Ativan 2 mg IV Benadryl 50 mg IV saline 1 L bolus Impression: #1 methamphetamine abuse Definitive disposition and diagnosis as appropriate pending reevaluation and review of above. - Related Data Allergies Allergy/AdvReac Type Severity Reaction Status Date / Time No Known Allergies Allergy Verified 02/06/18 03:28 Home Meds: Home Meds . [No Known Home Meds] 04/04/15 [History] Past Medical History Gastrointestinal History: Reports: GERD STRIPPER LATEX History: Reports: , Spontaneous - Infectious Disease History Infectious Disease History: Reports: Chicken Pox - Past Surgical History HEENT Surgical History: Reports: Other (See Below) Other HEENT Surgeries/Procedures: Tooth extraction Social & Family History - Family History Cardiac: Reports: Other (See Below) Other Cardiac Family History: Heart problem mom's side. OBGYN: Reports: - Caffeine Use Caffeine Use: Reports: None ED ROS GENERAL - Review of Systems Review Of Systems: ROS reveals no pertinent complaints other than HPI. ED EXAM, GENERAL - Physical Exam Exam: See Below (See dictated) Course - Vital Signs Last Recorded V/S: Last Vital Signs Temp 36.2 C 02/06/18 03:09 Pulse 101 H 02/06/18 03:42 Resp 17 02/06/18 03:42 BP 115/64 02/06/18 03:42 Pulse Ox 97 02/06/18 03:42 - Orders/Labs/Meds Orders: Active Orders 24 hr Category Date Time Status EKG 12 Lead [EKG Documentation Completion] [RC] STAT Care 02/06/18 03:21 Active Chest 1V Frontal [CR] Stat Exams 02/06/18 03:21 Taken DRUG SCREEN, URINE [URCHEM] Stat Lab 02/06/18 03:21 Ordered UA W/MICROSCOPIC [URIN] Stat Lab 02/06/18 03:21 Ordered Labs: Laboratory Tests 02/06/18 02/06/18 02/06/18 Range/Units 03:15 03:15 03:15 WBC 11.84 H (4.0-11.0) K/uL RBC 4.59 (4.30-5.90) M/uL Hgb 13.1 (12.0-16.0) g/dL Hct 38.2 (36.0-46.0) % MCV 83.2 (80.0-98.0) fL MCH 28.5 (27.0-32.0) pg MCHC 34.3 (31.0-37.0) g/dL RDW Std Deviation 43.9 (28.0-62.0) fl RDW Coeff of Des 15 (11.0-15.0) % Plt Count 309 (150-400) K/uL MPV 10.30 (7.40-12.00) fL Neut % (Auto) 61.6 (48.0-80.0) % Lymph % (Auto) 25.8 (16.0-40.0) % [place] % (Auto) 12.0 (0.0-15.0) % Eos % (Auto) 0.3 (0.0-7.0) % Baso % (Auto) 0.3 (0.0-1.5) % Neut # (Auto) 7.3 H (1.4-5.7) K/uL Lymph # (Auto) 3.1 H (0.6-2.4) K/uL [place] # (Auto) 1.4 H (0.0-0.8) K/uL Eos # (Auto) 0.0 (0.0-0.7) K/uL Baso # (Auto) 0.0 (0.0-0.1) K/uL Nucleated RBC % 0.0 /100WBC Nucleated RBCs # 0 K/uL Sodium 140 (136-145) mmol/L Potassium 4.2 (3.5-5.1) mmol/L Chloride 103 (98-107) mmol/L Carbon Dioxide 24.0 (21.0-32.0) mmol/L BUN 11 (7.0-18.0) mg/dL Creatinine 1.1 H (0.6-1.0) mg/dL Est Cr Clr Drug Dosing 81.61 mL/min Estimated GFR (MDRD) > 60.0 ml/min Glucose 98 (74-106) mg/dL Calcium 10.1 (8.5-10.1) mg/dL Total Bilirubin 0.6 (0.2-1.0) mg/dL AST 12 L (15-37) IU/L ALT 15 (14-63) IU/L Alkaline Phosphatase 58 (46-116) U/L Total Protein 8.3 H (6.4-8.2) g/dL Albumin 4.7 (3.4-5.0) g/dL Globulin 3.6 H (2.0-3.5) g/dL Albumin/Globulin Ratio 1.3 (1.3-2.8) HCG, Qual NEGATIVE (NEG) Ethyl Alcohol <3 mg/dL Meds: Medications Discontinued Medications Generic Name Dose Route Start Last Admin Trade Name Freq PRN Reason Stop Dose Admin Diphenhydramine HCl 50 mg 02/06/18 03:37 02/06/18 03:43 Benadryl IVPUSH 02/06/18 03:38 50 mg ONETIME ONE Administration Haloperidol Lactate Confirm 02/06/18 03:13 02/06/18 03:27 Haldol Administered 02/06/18 03:14 Not Given Dose 10 mg .ROUTE .STK-MED ONE Haloperidol Lactate 10 mg 02/06/18 03:10 02/06/18 03:33 Haldol IM 02/06/18 03:11 10 mg ONETIME ONE Administration Sodium Chloride 1,000 mls @ 999 mls/hr 02/06/18 03:21 02/06/18 03:32 Normal Saline IV 02/06/18 04:21 999 mls/hr .Bolus ONE Administration Lorazepam Confirm 02/06/18 03:14 02/06/18 03:26 Ativan Administered 02/06/18 03:15 Not Given Dose 2 mg .ROUTE .STK-MED ONE Lorazepam 2 mg 02/06/18 03:20 02/06/18 03:32 Ativan IVPUSH 02/06/18 03:21 2 mg ONETIME ONE Administration Departure - Departure Time of Disposition: 04:40 Disposition: Home, Self-Care 01 Condition: Good Clinical Impression: Drug abuse - Discharge Information *PRESCRIPTION DRUG MONITORING PROGRAM REVIEWED*: Not Applicable *COPY OF PRESCRIPTION DRUG MONITORING REPORT IN PATIENT HAYLIE: Not Applicable Additional Instructions: The following information is given to patients seen in the emergency department who are being discharged to home. This information is to outline your options for follow-up care. We provide all patients seen in our emergency department with a follow-up referral. The need for follow-up, as well as the timing and circumstances, are variable depending upon the specifics of your emergency department visit. If you don't have a primary care physician on staff, we will provide you with a referral. We always advise you to contact your personal physician following an emergency department visit to inform them of the circumstance of the visit and for follow-up with them and/or the need for any referrals to a consulting specialist. The emergency department will also refer you to a specialist when appropriate. This referral assures that you have the opportunity for followup care with a specialist. All of these measure are taken in an effort to provide you with optimal care, which includes your followup. Under all circumstances we always encourage you to contact your private physician who remains a resource for coordinating your care. When calling for followup care, please make the office aware that this follow-up is from your recent emergency room visit. If for any reason you are refused follow-up, please contact the [facility] emergency department at and asked to speak to the emergency department charge nurse. Stop using drugs follow primary medical doctor return as needed as discussed - My Orders Last 24 Hours: My Active Orders 02/06/18 03:21 EKG 12 Lead [EKG Documentation Completion] [RC] STAT Chest 1V Frontal [CR] Stat DRUG SCREEN, URINE [URCHEM] Stat UA W/MICROSCOPIC [URIN] Stat - Assessment/Plan Last 24 Hours: My Active Orders 02/06/18 03:21 EKG 12 Lead [EKG Documentation Completion] [RC] STAT Chest 1V Frontal [CR] Stat DRUG SCREEN, URINE [URCHEM] Stat UA W/MICROSCOPIC [URIN] Stat
[2018-02-06] MEDS ORDERED: LORazepam 2 MG/ML SDV IVPUSH ONE (03:20)
[2018-02-06] MEDS ORDERED: Sodium Chloride 0.9% 1,000 ML IV ONE (03:21)
[2018-02-06] MEDS ORDERED: diphenhydrAMINE 50 MG/ML SDV IVPUSH ONE (03:37)
[2018-02-06 03:57] LABS: CHLORIDE,CL 103 mmol/L (98-107); SODIUM,NA 140 mmol/L (136-145)
[2018-02-06 05:39] VITALS: BP 111/55
--- NOTE | 2018-02-08 10:41 | CR ---
EXAM DATE: 02/06/18 PATIENT'S AGE: 22 Patient: YANDY RYAN Facility: [place], [place] Site . Site : 1995 Study: XRay Chest [id number]/25/2018 3:47:54 AM Ordering Physician: Xochitl Maher Final Report: Indication: Possible methamphetamine toxicity Technique: Chest 1 view Comparison: None Findings/Impression: Cardiovascular and mediastinum: Heart size and vasculature are normal in caliber and appearance. Mediastinum is within normal limits. Lungs and pleural space: Lungs are clear. No sign of infiltrate or mass. No sign of pleural effusion. No pneumothorax. Bones and soft tissues: No significant findings. Dictated by Coni Holguin MD @ Feb 06 2018 3:49AM (Electronic Signature) Report Signed by Proxy. [facility]
== END 2018-02-06 05:30 | disposition home or self-care (01) ==
LOC: MW.ED 03:09
DX: F15.10 Other stimulant abuse, uncomplicated (principal)
CPT/HCPCS: 36415; 71045; 80053; 84703; 85025; 93005; 96361; 96372; 96374; 96375; 99285; G0480; J1200; J1630; J2060; J7040

== ENCOUNTER 2018-02-08 14:59 | Emergency (ER) | payer BC ==
[2018-02-08 15:15] VITALS: BP 117/69
[2018-02-08] MEDS ORDERED: Sodium Chloride 0.9% 2.5 ML Syringe FLUSH PRN (15:47)
[2018-02-08] MEDS ORDERED: Sodium Chloride 0.9% 10 ML Syringe FLUSH PRN (15:47)
[2018-02-08] MEDS ORDERED: diphenhydrAMINE 50 MG/ML SDV IVPUSH ONE (15:50)
--- NOTE | 2018-02-08 15:51 | EDM.PDOC ---
ED HPI GENERAL MEDICAL PROBLEM - General Chief Complaint: ENT Problem Stated Complaint: PT CAN'T REALLY OPEN HER MOUTH Time Seen by Provider: 02/08/18 15:50 Source of Information: Reports: Patient History Limitations: Reports: No Limitations - History of Present Illness INITIAL COMMENTS - FREE TEXT/NARRATIVE: HISTORY AND PHYSICAL: []22-year-old female presents with difficulty moving her jaw, lethargic History of Present Illness: []Patient was seen 2 days ago in the emergency department Review of Systems: As per history of present illness and below otherwise all systems reviewed and negative. Past medical history: As per history of present illness and as reviewed below otherwise noncontributory. Surgical history: As per history of present illness and as reviewed below otherwise noncontributory. Social history: No reported history of drug or alcohol abuse. Family history: As per history of present illness and as reviewed below otherwise noncontributory. Physical exam: HEENT: Atraumatic, normocehpalic, pupils reactive, negative for conjunctival pallor or scleral icterus, mucous membranes moist, throat clear, neck supple, nontender, trachea midline. Lungs: Clear to auscultation, breath sounds equal bilaterally, chest non tender. Heart: S1S2, regular, negative for clicks, rubs, or JVD. Abdomen: Soft, nondistended, nontender. Negative for masses or hepatossplenmegaly. Negative for costovertebral tenderness. Pelvis: Stable nontender. Genitourinary: Deferred. Rectal: Deferred Extremities: Atraumatic, negative for cords or calf pain. Neurovascular unremarkable. Neuro: Awake, alert, oriented. Cranial nerves II through XII unremarkable. Cerebellum unremarkable. Motor and sensory unremarkable throughout. Exam nonfocal. Diagnostics: []EKG head CT mandible x-rays CBC CMP drug screen [employer]: []1 L normal saline Impression: []' Altered Behavior Plan: []Discharged home Continue with Benadryl [id number] 2 capsules every 4-6 hours needed Follow up with your primary care provider to help with your drug use Clinics that may be of assistance would be the [facility] that deals with opiates in [place] There are also clinics in [place] that may be helpful [facility] do may be helpful for you Definitive disposition and diagnosis as appropriate pending reevaluation and review of above. Onset: Today, Sudden Duration: Day(s): Location: Reports: Face Quality: Reports: Ache Severity: Severe Improves with: Reports: None Worsens with: Reports: None Oral/Mouth Pain Score (Numeric/FACES): 8 - Related Data Allergies Allergy/AdvReac Type Severity Reaction Status Date / Time No Known Allergies Allergy Verified 02/08/18 15:15 Home Meds: Home Meds . [No Known Home Meds] 04/04/15 [History] Past Medical History HEENT History: Reports: None Gastrointestinal History: Reports: GERD REGROOVER History: Reports: , Spontaneous Psychiatric History: Reports: Anxiety, Bipolar Other Psychiatric History: spouse at bedside states pt is not on "regular" medications for anxiety and bipolar - Infectious Disease History Infectious Disease History: Reports: Chicken Pox - Past Surgical History HEENT Surgical History: Reports: Other (See Below) Other HEENT Surgeries/Procedures: Tooth extraction Social & Family History - Family History Family Medical History: Noncontributory Cardiac: Reports: Other (See Below) Other Cardiac Family History: Heart problem mom's side. OBGYN: Reports: - Tobacco Use Smoking Status *Q: Never Smoker - Caffeine Use Caffeine Use: Reports: Coffee, Soda - Recreational Drug Use Recreational Drug Use: Yes Recreational Drug Type: Reports: Methamphetamine Other Recreational Drug Type: last used meth on 02/06 ED ROS ENT - Review of Systems Review Of Systems: ROS reveals no pertinent complaints other than HPI. ED EXAM, ENT - Physical Exam Exam: See Below (see dictation) Course - Vital Signs Last Recorded V/S: Last Vital Signs Temp 36.8 C 02/08/18 15:13 Pulse 105 H 02/08/18 15:13 Resp 16 02/08/18 15:13 BP 117/69 02/08/18 15:13 Pulse Ox 96 02/08/18 15:13 - Orders/Labs/Meds Orders: Active Orders 24 hr Category Date Time Status EKG Documentation Completion [RC] STAT Care 02/08/18 15:52 Active Head wo Cont [CT] Stat Exams 02/08/18 15:47 Taken Max Facial Sinus wo Cont [CT] Stat Exams 02/08/18 Taken DRUG SCREEN, URINE [URCHEM] Stat Lab 02/08/18 16:25 Ordered UA W/MICROSCOPIC [URIN] Stat Lab 02/08/18 16:25 Ordered Sodium Chloride 0.9% [Saline Flush] Med 02/08/18 15:47 Active 10 ml FLUSH ASDIRECTED PRN Sodium Chloride 0.9% [Saline Flush] Med 02/08/18 15:47 Active 2.5 ml FLUSH ASDIRECTED PRN Saline Lock Insert [OM.PC] Stat Oth 02/08/18 15:47 Ordered Medication Orders Sodium Chloride (Saline Flush) 10 ml FLUSH ASDIRECTED PRN PRN Reason: Keep Vein Open Sodium Chloride (Saline Flush) 2.5 ml FLUSH ASDIRECTED PRN PRN Reason: Keep Vein Open Labs: Laboratory Tests 02/08/18 02/08/18 02/08/18 Range/Units 15:57 15:57 16:25 WBC 5.11 (4.0-11.0) K/uL RBC 4.70 (4.30-5.90) M/uL Hgb 13.3 (12.0-16.0) g/dL Hct 39.5 (36.0-46.0) % MCV 84.0 (80.0-98.0) fL MCH 28.3 (27.0-32.0) pg MCHC 33.7 (31.0-37.0) g/dL RDW Std Deviation 44.5 (28.0-62.0) fl RDW Coeff of Dse 15 (11.0-15.0) % Plt Count 234 (150-400) K/uL MPV 10.50 (7.40-12.00) fL Neut % (Auto) 65.3 (48.0-80.0) % Lymph % (Auto) 23.5 (16.0-40.0) % [place] % (Auto) 10.4 (0.0-15.0) % Eos % (Auto) 0.2 (0.0-7.0) % Baso % (Auto) 0.6 (0.0-1.5) % Neut # (Auto) 3.3 (1.4-5.7) K/uL Lymph # (Auto) 1.2 (0.6-2.4) K/uL [place] # (Auto) 0.5 (0.0-0.8) K/uL Eos # (Auto) 0.0 (0.0-0.7) K/uL Baso # (Auto) 0.0 (0.0-0.1) K/uL Nucleated RBC % 0.0 /100WBC Nucleated RBCs # 0 K/uL Sodium 138 (136-145) mmol/L Potassium 4.1 (3.5-5.1) mmol/L Chloride 104 (98-107) mmol/L Carbon Dioxide 29.2 (21.0-32.0) mmol/L BUN 11 (7.0-18.0) mg/dL Creatinine 0.8 (0.6-1.0) mg/dL Est Cr Clr Drug Dosing 111.52 mL/min Estimated GFR (MDRD) > 60.0 ml/min Glucose 131 H (74-106) mg/dL Calcium 9.1 (8.5-10.1) mg/dL Total Bilirubin 0.4 (0.2-1.0) mg/dL AST 10 L (15-37) IU/L ALT 17 (14-63) IU/L Alkaline Phosphatase 56 (46-116) U/L Total Protein 7.8 (6.4-8.2) g/dL Albumin 4.2 (3.4-5.0) g/dL Globulin 3.6 H (2.0-3.5) g/dL Albumin/Globulin Ratio 1.2 L (1.3-2.8) Urine Color YELLOW Urine Appearance CLEAR Urine pH 6.5 (5.0-8.0) Ur Specific [place] 1.020 (1.001-1.035) Urine Protein 100 (NEGATIVE) mg/dL Urine Glucose (UA) NEGATIVE (NEGATIVE) mg/dL Urine Ketones 40 H (NEGATIVE) mg/dL Urine Occult Blood NEGATIVE (NEGATIVE) Urine Nitrite NEGATIVE (NEGATIVE) Urine Bilirubin SMALL H (NEGATIVE) Urine Ictotest NEGATIVE Urine Urobilinogen 4.0 H (<2.0) EU/dL Ur Leukocyte Esterase NEGATIVE (NEGATIVE) Urine RBC 0-1 (0-2/HPF) Urine WBC 0-1 (0-5/HPF) Ur Epithelial Cells RARE (NONE-FEW) Urine Bacteria RARE (NEGATIVE) Urine Opiates Screen (NEGATIVE) Ur Oxycodone Screen (NEGATIVE) Urine Methadone Screen (NEGATIVE) Ur Barbiturates Screen (NEGATIVE) Ur Phencyclidine Scrn (NEGATIVE) Ur Amphetamine Screen (NEGATIVE) U Methamphetamines Scrn (NEGATIVE) U Benzodiazepines Scrn (NEGATIVE) U Cocaine Metab Screen (NEGATIVE) U Marijuana (THC) Screen (NEGATIVE) 02/08/18 Range/Units 16:25 WBC (4.0-11.0) K/uL RBC (4.30-5.90) M/uL Hgb (12.0-16.0) g/dL Hct (36.0-46.0) % MCV (80.0-98.0) fL MCH (27.0-32.0) pg MCHC (31.0-37.0) g/dL RDW Std Deviation (28.0-62.0) fl RDW Coeff of Des (11.0-15.0) % Plt Count (150-400) K/uL MPV (7.40-12.00) fL Neut % (Auto) (48.0-80.0) % Lymph % (Auto) (16.0-40.0) % [place] % (Auto) (0.0-15.0) % Eos % (Auto) (0.0-7.0) % Baso % (Auto) (0.0-1.5) % Neut # (Auto) (1.4-5.7) K/uL Lymph # (Auto) (0.6-2.4) K/uL [place] # (Auto) (0.0-0.8) K/uL Eos # (Auto) (0.0-0.7) K/uL Baso # (Auto) (0.0-0.1) K/uL Nucleated RBC % /100WBC Nucleated RBCs # K/uL Sodium (136-145) mmol/L Potassium (3.5-5.1) mmol/L Chloride (98-107) mmol/L Carbon Dioxide (21.0-32.0) mmol/L BUN (7.0-18.0) mg/dL Creatinine (0.6-1.0) mg/dL Est Cr Clr Drug Dosing mL/min Estimated GFR (MDRD) ml/min Glucose (74-106) mg/dL Calcium (8.5-10.1) mg/dL Total Bilirubin (0.2-1.0) mg/dL AST (15-37) IU/L ALT (14-63) IU/L Alkaline Phosphatase (46-116) U/L Total Protein (6.4-8.2) g/dL Albumin (3.4-5.0) g/dL Globulin (2.0-3.5) g/dL Albumin/Globulin Ratio (1.3-2.8) Urine Color Urine Appearance Urine pH (5.0-8.0) Ur Specific [place] (1.001-1.035) Urine Protein (NEGATIVE) mg/dL Urine Glucose (UA) (NEGATIVE) mg/dL Urine Ketones (NEGATIVE) mg/dL Urine Occult Blood (NEGATIVE) Urine Nitrite (NEGATIVE) Urine Bilirubin (NEGATIVE) Urine Ictotest Urine Urobilinogen (<2.0) EU/dL Ur Leukocyte Esterase (NEGATIVE) Urine RBC (0-2/HPF) Urine WBC (0-5/HPF) Ur Epithelial Cells (NONE-FEW) Urine Bacteria (NEGATIVE) Urine Opiates Screen NEGATIVE (NEGATIVE) Ur Oxycodone Screen NEGATIVE (NEGATIVE) Urine Methadone Screen NEGATIVE (NEGATIVE) Ur Barbiturates Screen NEGATIVE (NEGATIVE) Ur Phencyclidine Scrn NEGATIVE (NEGATIVE) Ur Amphetamine Screen NEGATIVE (NEGATIVE) U Methamphetamines Scrn POSITIVE (NEGATIVE) U Benzodiazepines Scrn NEGATIVE (NEGATIVE) U Cocaine Metab Screen NEGATIVE (NEGATIVE) U Marijuana (THC) Screen NEGATIVE (NEGATIVE) Meds: Medications Generic Name Dose Route Start Last Admin Trade Name Freq PRN Reason Stop Dose Admin Sodium Chloride 10 ml 02/08/18 15:47 Saline Flush FLUSH ASDIRECTED PRN Keep Vein Open Sodium Chloride 2.5 ml 02/08/18 15:47 Saline Flush FLUSH ASDIRECTED PRN Keep Vein Open Discontinued Medications Generic Name Dose Route Start Last Admin Trade Name Freq PRN Reason Stop Dose Admin Diphenhydramine HCl 25 mg 02/08/18 15:50 02/08/18 16:01 Benadryl IVPUSH 02/08/18 15:51 25 mg ONETIME ONE Administration Diphenhydramine HCl Confirm 02/08/18 15:52 02/08/18 17:26 Benadryl Administered 02/08/18 15:53 Not Given Dose 50 mg .ROUTE .STK-MED ONE Sodium Chloride 1,000 mls @ 999 mls/hr 02/08/18 15:54 02/08/18 16:01 Normal Saline IV 02/08/18 16:54 999 mls/hr STAT ONE Administration Departure - Departure Time of Disposition: 17:39 Disposition: Home, Self-Care 01 Condition: Good Clinical Impression: Alteration of behavior in patient 22 years to 65 years of age, Drug abuse - Discharge Information *PRESCRIPTION DRUG MONITORING PROGRAM REVIEWED*: Not Applicable *COPY OF PRESCRIPTION DRUG MONITORING REPORT IN PATIENT HAYLIE: Not Applicable Instructions: Substance Use Disorder Referrals: PCP,None [Primary Care Provider] - Forms: ED Department Discharge Additional Instructions: The following information is given to patients seen in the emergency department who are being discharged to home. This information is to outline your options for follow-up care. We provide all patients seen in our emergency department with a follow-up referral. The need for follow-up, as well as the timing and circumstances, are variable depending upon the specifics of your emergency department visit. If you don't have a primary care physician on staff, we will provide you with a referral. We always advise you to contact your personal physician following an emergency department visit to inform them of the circumstance of the visit and for follow-up with them and/or the need for any referrals to a consulting specialist. The emergency department will also refer you to a specialist when appropriate. This referral assures that you have the opportunity for followup care with a specialist. All of these measure are taken in an effort to provide you with optimal care, which includes your followup. Under all circumstances we always encourage you to contact your private physician who remains a resource for coordinating your care. When calling for followup care, please make the office aware that this follow-up is from your recent emergency room visit. If for any reason you are refused follow-up, please contact the [facility] emergency department at and asked to speak to the emergency department charge nurse. No gross abnormalities were noted on the testing that was completed today Improvement noted with Benadryl You may take this [id number] medication 2 capsules up to 4 times a day - My Orders Last 24 Hours: My Active Orders 02/08/18 15:47 Head wo Cont [CT] Stat Sodium Chloride 0.9% [Saline Flush] 10 ml FLUSH ASDIRECTED PRN Sodium Chloride 0.9% [Saline Flush] 2.5 ml FLUSH ASDIRECTED PRN Saline Lock Insert [OM.PC] Stat 02/08/18 15:52 EKG Documentation Completion [RC] STAT 02/08/18 16:25 DRUG SCREEN, URINE [URCHEM] Stat UA W/MICROSCOPIC [URIN] Stat - Assessment/Plan Last 24 Hours: My Active Orders 02/08/18 15:47 Head wo Cont [CT] Stat Sodium Chloride 0.9% [Saline Flush] 10 ml FLUSH ASDIRECTED PRN Sodium Chloride 0.9% [Saline Flush] 2.5 ml FLUSH ASDIRECTED PRN Saline Lock Insert [OM.PC] Stat 02/08/18 15:52 EKG Documentation Completion [RC] STAT 02/08/18 16:25 DRUG SCREEN, URINE [URCHEM] Stat UA W/MICROSCOPIC [URIN] Stat
[2018-02-08] MEDS ORDERED: diphenhydrAMINE 50 MG/ML SDV ONE (15:52)
[2018-02-08] MEDS ORDERED: Sodium Chloride 0.9% 1,000 ML IV ONE (15:54)
[2018-02-08 16:49] LABS: CHLORIDE,CL 104 mmol/L (98-107); SODIUM,NA 138 mmol/L (136-145)
--- NOTE | 2018-02-09 10:07 | CT ---
EXAM DATE: 02/08/18 PATIENT'S AGE: 22 Patient: YANDY JONES Facility: [place], [place] Site . Site : 1995 Study: CT Head [id number] 4:33:21 PM Ordering Physician: Doctor Terry Final Report: INDICATION: Headache, slurring words TECHNIQUE: CT Head without i.v. contrast. CONTRAST: None COMPARISON: None FINDINGS: CSF space: The ventricles are normal for age. Brain: No evidence of mass, acute infarction or hemorrhage is seen. No mass- effect or midline shift is seen. The brain parenchyma is otherwise normal in appearance with preservation of the alexandra-white matter junction. Calvarium: The visualized paranasal sinuses are well aerated. The mastoid air cells are clear. The visualized orbits are grossly unremarkable. The calvarium is unremarkable in appearance with no fractures identified. IMPRESSION: 1. No evidence of acute infarction, intracranial hemorrhage, or mass-effect seen. Please note that all CT scans at this facility use dose modulation, iterative reconstruction, and/or weight-based dosing when appropriate to reduce radiation dose to as low as reasonably achievable. Dictated by: Adrian Wallace MD @ 02/08/2018 16:42:04 (Electronic Signature) Report Signed by Proxy. ALYCIA
--- NOTE | 2018-02-09 10:08 | CT ---
EXAM DATE: 02/08/18 PATIENT'S AGE: 22 Patient: YANDY JONES Facility: [place], [place] Site . Site : 1995 Study: CT Facial [id number] 4:35:17 PM Ordering Physician: Doctor Terry Final Report: INDICATION: constant moving of jaw CT FACE WITHOUT CONTRAST TECHNIQUE: Multidetector axial CT imaging was performed through the face without contrast. Coronal and sagittal reconstructions were generated. FINDINGS: No acute fractures are identified. The orbits and their contents are within normal limits. The paranasal sinuses are normally aerated aside from trace mucosal thickening along the floor of the right maxillary sinus. The mandible and temporomandibular joints are intact. Mastoid air cells are clear. IMPRESSION: No fracture or other acute finding identified. ARYA DOSS MD [employer] Dictated by: Vijay Doss MD @ 02/08/2018 16:50:53 (Electronic Signature) Report Signed by Proxy. [email or web address]
== END 2018-02-08 17:50 | disposition home or self-care (01) ==
LOC: MW.ED 14:59
DX: R46.89 Other symptoms and signs involving appearance and behavior (principal)
CPT/HCPCS: 36415; 70450; 70486; 80053; 80305; 81001; 85025; 96361; 96374; 99284; J1200; J7040; 99283